=== PATIENT | male | born 1970 | race Caucasian/White ===

== ENCOUNTER 2021-03-02 10:08 | Emergency (ER) | payer BC | END 2021-03-02 12:39 | disposition left against medical advice (07) | LOC: ER 10:09 | DX: R05.9 Cough, unspecified (principal); Z53.21 Procedure and treatment not carried out due to patient leaving prior to being seen by health care provider ==

== ENCOUNTER 2023-05-22 15:11 | Emergency (ER) | payer BC ==
[~2023-05-22] VITALS: Ht 185.4 cm; Wt 84.1 kg
[2023-05-22 15:22] VITALS: TEMP 97.9
[2023-05-22] MEDS ORDERED: TETanus/Pertussis (Acell)/Diphther VAC/PF (Tdap-Adult) 0.5ml syringe IMVAC ONE (15:35)
[2023-05-22] MEDS: LIDOcaine 1% 30ml preserv. free vial IJ ONE ×2 (16:04→16:05)
[2023-05-22] MEDS ORDERED: HYDR-3973 PO (17:10)
[2023-05-22 18:01] VITALS: BP 126/87; PULSE 74; RESP 14; O2SAT 98
[2023-05-23] MEDS ORDERED: HYDR-3973 PO (10:35)
== END 2023-05-22 18:11 | disposition home or self-care (01) ==
LOC: ER 15:13
DX: S61.215A Laceration without foreign body of left ring finger without damage to nail, initial encounter (principal); R11.0 Nausea; X58.XXXA Exposure to other specified factors, initial encounter; Y93.89 Activity, other specified; Y92.89 Other specified places as the place of occurrence of the external cause; Y99.8 Other external cause status
CPT/HCPCS: 12002; 73140; 90471; 90715; 99284

== ENCOUNTER 2023-06-01 14:59 | Emergency (ER) | payer BC ==
[~2023-06-01] VITALS: Ht 185.4 cm; Wt 86.4 kg
[~2023-06-01 14:59] MED LIST: HYDR-3973 PO
[2023-06-01 15:25] VITALS: BP 145/93; PULSE 89; RESP 18; O2SAT 98
[2023-06-01 17:20] VITALS: TEMP 97.8
== END 2023-06-01 17:22 | disposition home or self-care (01) ==
LOC: ER 15:00
DX: S61.212D Laceration without foreign body of right middle finger without damage to nail, subsequent encounter (principal); X58.XXXD Exposure to other specified factors, subsequent encounter
CPT/HCPCS: 12001; 99281; 99282